=== PATIENT | male | born 1980 | race Caucasian/White ===

== ENCOUNTER → 2017-10-20 | Outpatient (CLI) | payer OTHER ==
--- NOTE | 2017-10-20 09:07 | DIAGNOSTIC IMAGING REPORT ---
ABDOMEN LIMITED (US) HISTORY: Pain. Nausea. RUQ ABD PAIN. COMPARISON: None. FINDINGS: Pancreas: The pancreas demonstrates a normal echotexture. Liver: Unremarkable. Gallbladder: Multiple small polyps measuring up to 3 mm. No shadowing gallstones. CBD: 3 mm Right kidney: No hydronephrosis. IMPRESSION: 1. Multiple small gallbladder polyps raising the possibility of cholesterolosis. 2. No shadowing gallstones. 3. Remainder the study is negative. The above report was generated using voice recognition software. It may contain grammatical, syntax or spelling errors. Electronically signed by: Denis Laws M.D. 10/20/2017 9:05 AM Dictated Date/Time: 10/20/2017 9:04 AM
== END | disposition home or self-care (01) ==
LOC: C.ULTR 08:09
PROVIDERS: ATTEND Family Medicine
DX: R10.11 Right upper quadrant pain (principal); K82.4 Cholesterolosis of gallbladder